=== PATIENT | male | born 1950 | race Caucasian/White ===

== ENCOUNTER 2022-01-10 05:14 | Emergency (ER) | payer OTHER ==
[~2022-01-10] VITALS: Ht 182.9 cm; Wt 90.7 kg
--- NOTE | 2022-01-10 05:20 | NUR ---
EVANS 86 FROM HOME FOR C/O WOKE UP WITH L SIDED NON- RADIATING CP 06/12 TOOK 2 TABS OF NITRO W/ RELIEF. NO C/O CP ON TRIAGE. PT A/OX3. TOLERATING R/A WELL WITH NO SOB. CONNECTED PT TO POX AND MONITOR. SAFETY MEASURES IN PLACE.
--- NOTE | 2022-01-10 05:25 | NUR ---
LAC #18G S/L; PATENT AND INTACT. BLOOD COLLECTED AND SENT TO LAB
[2022-01-10] MEDS ORDERED: ASPIRIN 81 MG TAB.CHEW PO ONE (05:30)
[2022-01-10] MEDS ORDERED: ASPIRIN 81 MG TAB.CHEW ONE (05:31)
--- NOTE | 2022-01-10 05:50 | NUR ---
MEDICAL DIR AT PT'S BEDSIDE
[2022-01-10 05:52] LABS: CALCIUM, SERUM 8.5 mg/dL (8.5-10.1); CARBON DIOXIDE 29 mmol/L (21-32); CHLORIDE 98 mmol/L (98-107); GLUCOSE 201 mg/dL (74-106); POTASSIUM 3.1 mmol/L (3.5-5.1); SODIUM SERUM 134 mmol/L (136-145); UREA NITROGEN, BLOOD 15 mg/dL (7-18)
[2022-01-10 05:59] LABS: BASOPHILS % (AUTO) 0.1 % (0.0-2.0); EOSINOPHILS % (AUTO) 0.1 % (0.0-6.0); HEMATOCRIT 38 % (39-51); HEMOGLOBIN 13.1 g/dL (13.5-17.5); LYMPHOCYTES # (AUTO) 1.9 K/uL (0.8-4.8); LYMPHOCYTES % (AUTO) 12.3 % (20.0-44.0); MEAN CORPUSCULAR HGB CONC 34 g/dl (31.0-36.0); MEAN CORPUSCULAR VOLUME 83 fL (80-96); MONOCYTES # (AUTO) 1.8 K/uL (0.1-1.30); MONOCYTES % (AUTO) 11.4 % (2.0-12.0); NEUTROPHILS # (AUTO) 11.9 K/uL (1.8-8.9); NEUTROPHILS % (AUTO) 76.1 % (43.0-81.0); PLATELET COUNT (AUTO) 215 K/uL (150-450); RED BLOOD CELL COUNT(AUTO) 4.63 MIL/uL (4.5-6.0); WHITE BLOOD COUNT (AUTO) 15.7 K/uL (4.3-11.0)
--- NOTE | 2022-01-10 06:40 | NUR ---
robin done and sent to lab
--- NOTE | 2022-01-10 07:35 | NUR ---
Recieved pt awake and alert dineses chedst pain UA SENT TO LAB looks restinr and comfortable
[2022-01-10] MEDS ORDERED: HYDR453.3 TP (07:36)
[2022-01-10] MEDS ORDERED: OLME1TAB22 PO (07:36)
[2022-01-10] MEDS ORDERED: AMLO-213 PO (07:36)
[2022-01-10] MEDS ORDERED: DICL100G34 TP (07:36)
[2022-01-10] MEDS ORDERED: ATOR10TA PO (07:36)
--- NOTE | 2022-01-10 08:33 | NUR ---
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
--- NOTE | 2022-01-10 08:58 | NUR ---
INFORMED OF NORMAN'S PLAN, PT REQUESTED TO BE TX TO [facility]OR [facility] INSTEAD
[2022-01-10] MEDS ORDERED: ASPI-1169 PO (09:05)
--- NOTE | 2022-01-10 09:14 | NUR ---
NO BED AVAILABLE AT [facility] KAYLIN [place],WILL TRY [facility] WHICH IS CLOSEST,PT INFORMED
--- NOTE | 2022-01-10 09:27 | NUR ---
WATING FOR ROOM AND INSURNCE TO CALL BACK
--- NOTE | 2022-01-10 09:33 | NUR ---
DR FAGAN ON THE PHONE WITH DR DEGROOT.
--- NOTE | 2022-01-10 10:03 | NUR ---
[facility] CALLED,[facility] FAXED TO [phone] REQUESTED
--- NOTE | 2022-01-10 10:56 | NUR ---
WATING FOR ROOM AND ACCEPTING HOSPITALE
[2022-01-10] MEDS ORDERED: PANTOPRAZOLE 40 MG TABLET.DR PO ONE ×2 (11:00→12:39)
[2022-01-10] MEDS ORDERED: POTASSIUM CHLORIDE 20 MEQ TAB.PRT.SR PO ONE ×2 (11:00→12:40)
--- NOTE | 2022-01-10 12:47 | NUR ---
DINESES CHEST PAIN EAT LUNCH TOLORATED WILL NO N/V
--- NOTE | 2022-01-10 13:26 | NUR ---
SPOKE WITH KIMBERLEE [place] FROM [facility]. PATIENT ACCEPTED TO [facility], UNDER THE CARE OF DR. DEGROOT. GOING TO ROOM 523-A. [phone] TO GIVE REPORT. KIMBERLEE WILL CALL US BACK RE: TRANSPORTATION INFORMATION. PRIMARY RN AWARE.
--- NOTE | 2022-01-10 13:54 | NUR ---
SPOKE WITH KIMBERLEE [place] FROM [facility] ([phone]). 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 PRIMARY RN AWARE.
--- NOTE | 2022-01-10 15:00 | NUR ---
TRANSFER TO [facility] ROOM # 523 A [phone] HAND OFF TO JESICA Ochoa RN PHONE CONSENT
[2022-01-10 16:10] VITALS: BP 152/62
--- NOTE | 2022-01-10 16:15 | NUR ---
transfer to [facility] by abigail vs brian meng chest pain
== END 2022-01-10 16:21 | disposition short-term general hospital (02) ==
LOC: ER 05:19
DX: R07.9 Chest pain, unspecified (principal); R73.9 Hyperglycemia, unspecified; Z20.822 Contact with and (suspected) exposure to COVID-19; Z79.82 Long term (current) use of aspirin; Z79.899 Other long term (current) drug therapy; Z87.891 Personal history of nicotine dependence; I10 Essential (primary) hypertension
CPT/HCPCS: 36415; 71045-TC; 80048-TC; 83880; 84484-TC; 85025-TC; C9803

== ENCOUNTER 2022-06-16 13:08 | Emergency (ER) | payer OTHER ==
[~2022-06-16] VITALS: Ht 172.7 cm; Wt 90.7 kg
[~2022-06-16 13:08] MED LIST: AMLO-213 PO; ASPI-1169 PO; ATOR10TA PO; OLME1TAB22 PO
[2022-06-16 14:48] VITALS: BP 145/80
== END 2022-06-16 14:40 | disposition home or self-care (01) ==
LOC: ER 13:10
DX: S51.002A Unspecified open wound of left elbow, initial encounter (principal); I10 Essential (primary) hypertension; Z79.899 Other long term (current) drug therapy; W18.30XA Fall on same level, unspecified, initial encounter; Y93.89 Activity, other specified; Y92.89 Other specified places as the place of occurrence of the external cause; Y99.8 Other external cause status

== ENCOUNTER 2024-12-01 06:18 | Emergency (ER) | payer OTHER ==
[~2024-12-01] VITALS: Ht 172.7 cm; Wt 99.8 kg
[2024-12-01 06:37] VITALS: BP 141/78; TEMP 98.1; O2SAT 97
[2024-12-01] MEDS ORDERED: TDAP [DIPH/PERTUSSIS/TET] 0.5 ML VIAL IM ONE (06:44)
[2024-12-01] MEDS: TDAP [DIPH/PERTUSSIS/TET] 0.5 ML VIAL IM ONE (06:48)
== END 2024-12-01 06:49 | disposition home or self-care (01) ==
LOC: ER 06:20
DX: S61.210A Laceration without foreign body of right index finger without damage to nail, initial encounter (principal); I10 Essential (primary) hypertension; Z79.82 Long term (current) use of aspirin; Z79.899 Other long term (current) drug therapy; Z87.891 Personal history of nicotine dependence; Z90.49 Acquired absence of other specified parts of digestive tract; W26.0XXA Contact with knife, initial encounter; Y93.G3 Activity, cooking and baking; Y92.090 Kitchen in other non-institutional residence as the place of occurrence of the external cause; Y99.8 Other external cause status
CPT/HCPCS: 90715